=== PATIENT | male | born 1985 | race Two or more races ===

== ENCOUNTER 2021-03-05 10:26 | Emergency (ER) | payer SELFPAY ==
[~2021-03-05] VITALS: Ht 165.1 cm; Wt 81.6 kg
[2021-03-05] MEDS ORDERED: KETOROLAC TROMETH 60MG/2ML VIAL IM ONE (11:45)
[2021-03-05 11:53] VITALS: BP 117/81
== END 2021-03-05 12:09 | disposition home or self-care (01) ==
LOC: ER 10:26
DX: R07.81 Pleurodynia (principal)
CPT/HCPCS: 71101; 96372; 99283; J1885

== ENCOUNTER 2021-06-05 21:12 | Emergency (ER) | payer MEDICAID, OTHER ==
[~2021-06-05] VITALS: Ht 162.6 cm; Wt 81.6 kg
[2021-06-06 00:36] VITALS: BP 122/69
[2021-06-06] MEDS ORDERED: FLUORESCEIN SOD OPTH TEST STRIP LEFTEYE ONE (01:00)
[2021-06-06] MEDS ORDERED: TETRACAINE HCL 0.5% OPTH(EYE) SOLN 4ML LEFTEYE ONE (01:00)
== END 2021-06-06 01:56 | disposition home or self-care (01) ==
LOC: ER 21:16
DX: T15.92XA Foreign body on external eye, part unspecified, left eye, initial encounter (principal); S05.02XA Injury of conjunctiva and corneal abrasion without foreign body, left eye, initial encounter; F17.210 Nicotine dependence, cigarettes, uncomplicated; X58.XXXA Exposure to other specified factors, initial encounter; Y93.89 Activity, other specified; Y92.89 Other specified places as the place of occurrence of the external cause; Y99.8 Other external cause status
CPT/HCPCS: 65222

== ENCOUNTER 2022-06-07 03:48 | Emergency (ER) | payer MEDICAID, OTHER ==
[~2022-06-07] VITALS: Ht 165.1 cm; Wt 71.0 kg
[2022-06-07] MEDS ORDERED: MORPHINE SULFATE 4 MG/ML SYR/VIAL IM ONE (04:30)
[2022-06-07] MEDS ORDERED: HYDR-4798 PO (05:47)
[2022-06-07] MEDS ORDERED: MORPHINE SULFATE INJ 2 MG/ml SYRG IM ONE (06:00)
[2022-06-07 06:20] VITALS: BP 126/76
== END 2022-06-07 06:20 | disposition home or self-care (01) ==
LOC: ER 03:48
DX: S42.031A Displaced fracture of lateral end of right clavicle, initial encounter for closed fracture (principal); F17.210 Nicotine dependence, cigarettes, uncomplicated; V89.2XXA Person injured in unspecified motor-vehicle accident, traffic, initial encounter; Y93.89 Activity, other specified; Y92.89 Other specified places as the place of occurrence of the external cause; Y99.8 Other external cause status
CPT/HCPCS: 71045; 73000; 73030; 96372; 99285; J2270

== ENCOUNTER 2022-06-24 07:01 | Day surgery (SDC) | payer OTHER, MEDICAID ==
[2022-06-20 12:29] LABS: Basophils # (auto) 0.1 10 ^3/uL (0-0.2); Basophils % (auto) 0.6 % (0.0-2.0); Eosinophils # (auto) 0.3 10 ^3/uL (0-0.8); Eosinophils % (auto) 2.3 % (0.0-7.0); Hematocrit 46.8 % (41.0-53.0); Hemoglobin 15.9 g/dL (13.5-17.5); Lymphocytes # (auto) 3.3 10 ^3/uL (0.4-5.4); Lymphocytes % (auto) 26.6 % (10.0-50.0); Mean Corpuscular Hemoglobin 30.9 pg (28.0-32.0); Monocytes # (auto) 1.1 10 ^3/uL (0-1.3); Monocytes % (auto) 8.6 % (0.0-12.0); Neutrophils # (auto) 7.7 10 ^3/uL (1.6-8.6); Neutrophils % (auto) 61.9 % (37.0-80.0); Nucleated Red Blood Cells % 0.1 %; Red Blood Cells 5.14 10^6/uL (4.5-5.90); Red Cell Distribution Width 12.2 % (11.8-14.3); White Blood Cell 12.5 10^3/uL (4.4-10.8)
[2022-06-20 12:38] LABS: Potassium 4.2 mmol/L (3.5-5.1)
[2022-06-20 12:47] LABS: Albumin 4.4 g/dL (3.4-5.0); BUN/Creatinine Ratio 17.2; Bilirubin, Total 0.6 mg/dL (0.2-1.0); Calcium 9.1 mg/dL (8.5-10.1); Total Protein 7.8 g/dL (6.4-8.2)
[2022-06-20 12:59] LABS: Urine Bacteria NONE SEEN /hpf (None Seen); Urine Blood Negative /uL (Negative); Urine Mucus FEW (None Seen); Urine Specific Gravity 1.038 (1.001-1.035); Urine WBC 1 /hpf (0 - 3)
[2022-06-20 13:26] LABS: INR 0.97 (0.9-1.15)
[~2022-06-24] VITALS: Ht 165.1 cm; Wt 85.3 kg
[~2022-06-24 07:01] MED LIST: DexAMETHasone SOD PHOS 10MG/1ML VIAL INJ ONE; GLYCOPYRROLATE 0.2 MG/ML 1ML VIAL ONE; HYDR-4798 PO; HYDROmorphone HCL 2 MG/ML VL/or syr ONE; MIDAZOLAM HCL 2MG/2ML 2ml VIAL (1mg/ml) ONE; NEOSTIGMINE 1 MG/ML INJ (10mg/10ML VIAL) ONE; PROPOFOL 10 MG/ML 20 ML IV ONE; SODIUM CHLORIDE LOCK 10 ML ONE; fentaNYL CITRATE 100 MCG/2 ML VL ONE
[2022-06-24] MEDS ORDERED: SUCCINYLCHOLINE CHLORIDE 20 MG/ML 10ML VIAL IV ONE (07:02)
[2022-06-24] MEDS ORDERED: fentaNYL CITRATE 100 MCG/2 ML VL IV ONE (07:02)
[2022-06-24] MEDS ORDERED: ROCURONIUM 10MG/ML 10ML VIAL IV ONE (07:02)
[2022-06-24] MEDS ORDERED: ceFAZolin 1GM/50ML 100 ML IV ONE (07:28)
[2022-06-24] MEDS ORDERED: MORPHINE SULFATE 4 MG/ML SYR/VIAL IV PRN (07:30)
[2022-06-24] MEDS ORDERED: METOCLOPRAMIDE HCL 5MG/ml INJ 2ml VIAL IV PRN (07:30)
[2022-06-24] MEDS ORDERED: HYDROmorphone HCL 2 MG/ML VL/or syr IV PRN (07:30)
[2022-06-24] MEDS ORDERED: BUPIVACAINE W/ EPINEPH 0.25% INJ 50ML MDV ONE (08:08)
[2022-06-24] MEDS ORDERED: HYDR1TAB97 PO (10:16)
[2022-06-24] MEDS ORDERED: HYDROmorphone HCL 2 MG/ML VL/or syr ONE (10:50)
[2022-06-24] MEDS: HYDROmorphone HCL 2 MG/ML VL/or syr IV PRN ×2 (10:50→11:05)
[2022-06-24 11:15] VITALS: BP 144/81
== END 2022-06-24 11:36 | disposition home or self-care (01) ==
LOC: SUR 07:01
PROVIDERS: ATTEND Orthopaedic Surgery Sports Medicine
DX: S42.021A Displaced fracture of shaft of right clavicle, initial encounter for closed fracture (principal); S42.031A Displaced fracture of lateral end of right clavicle, initial encounter for closed fracture; E66.9 Obesity, unspecified; Z68.31 Body mass index [BMI] 31.0-31.9, adult; V89.2XXA Person injured in unspecified motor-vehicle accident, traffic, initial encounter; Y93.89 Activity, other specified; Y92.89 Other specified places as the place of occurrence of the external cause; Z20.822 Contact with and (suspected) exposure to COVID-19
CPT/HCPCS: 23515; 36415; 73000; 80053; 81001; 85025; 85610; 85730; C1713; C1769; J0330; J0690; J1100; J1170; J2250; J2704; J3010; U0003; 76000

== ENCOUNTER 2022-10-14 20:21 | Emergency (ER) | payer OTHER, MEDICAID ==
[~2022-10-14] VITALS: Ht 175.3 cm; Wt 90.0 kg
[~2022-10-14 20:21] MED LIST changes: -DexAMETHasone SOD PHOS 10MG/1ML VIAL INJ ONE; -GLYCOPYRROLATE 0.2 MG/ML 1ML VIAL ONE; +HYDR1TAB97 PO; -HYDROmorphone HCL 2 MG/ML VL/or syr ONE; -MIDAZOLAM HCL 2MG/2ML 2ml VIAL (1mg/ml) ONE; -NEOSTIGMINE 1 MG/ML INJ (10mg/10ML VIAL) ONE; -PROPOFOL 10 MG/ML 20 ML IV ONE; -SODIUM CHLORIDE LOCK 10 ML ONE; -fentaNYL CITRATE 100 MCG/2 ML VL ONE
== END 2022-10-14 23:18 ==
LOC: ER 20:21
DX: S42.001G Fracture of unspecified part of right clavicle, subsequent encounter for fracture with delayed healing (principal); S43.401A Unspecified sprain of right shoulder joint, initial encounter; F17.210 Nicotine dependence, cigarettes, uncomplicated; Z98.890 Other specified postprocedural states; X58.XXXA Exposure to other specified factors, initial encounter; Y93.89 Activity, other specified; Y92.89 Other specified places as the place of occurrence of the external cause; Y99.8 Other external cause status
CPT/HCPCS: 73030